=== PATIENT | female | born 1975 | race Caucasian/White ===

== ENCOUNTER 2017-04-09 13:01 | Outpatient (CLI) | payer OTHER ==
[~2017-04-09 13:01] MED LIST: CYCL-1 PO; HYDR-3965 PO; METH-360 PO
[2017-04-09 13:03] VITALS: BP 162/105
== END 2017-04-09 13:50 | disposition home or self-care (01) ==
LOC: ORTHO 13:01
PROVIDERS: ATTEND Nurse Practitioner Family
DX: S52.515A Nondisplaced fracture of left radial styloid process, initial encounter for closed fracture (principal); S80.01XA Contusion of right knee, initial encounter; I10 Essential (primary) hypertension; X58.XXXA Exposure to other specified factors, initial encounter; Y93.89 Activity, other specified; Y92.89 Other specified places as the place of occurrence of the external cause; Y99.8 Other external cause status
CPT/HCPCS: 29075; A4590

== ENCOUNTER 2017-04-30 14:17 | Outpatient (CLI) | payer OTHER ==
[2017-04-30 14:19] VITALS: BP 150/93
== END 2017-04-30 15:00 | disposition home or self-care (01) ==
LOC: ORTHO 14:17
PROVIDERS: ATTEND Nurse Practitioner Family
DX: S52.515D Nondisplaced fracture of left radial styloid process, subsequent encounter for closed fracture with routine healing (principal); I10 Essential (primary) hypertension; X58.XXXD Exposure to other specified factors, subsequent encounter
CPT/HCPCS: 29075; 73110; A4590

== ENCOUNTER 2017-05-21 14:08 | Outpatient (CLI) | payer OTHER ==
[~2017-05-21 14:08] MED LIST changes: -HYDR-3965 PO
[2017-05-21 14:21] VITALS: BP 143/79
== END 2017-05-21 15:03 | disposition home or self-care (01) ==
LOC: ORTHO 14:08
PROVIDERS: ATTEND Nurse Practitioner Family
DX: S52.515D Nondisplaced fracture of left radial styloid process, subsequent encounter for closed fracture with routine healing (principal); S80.01XD Contusion of right knee, subsequent encounter; I10 Essential (primary) hypertension; X58.XXXD Exposure to other specified factors, subsequent encounter
CPT/HCPCS: 29260; 73110

== ENCOUNTER 2017-06-18 15:10 | Outpatient (CLI) | payer OTHER | END 2017-06-18 15:35 | disposition home or self-care (01) | LOC: ORTHO 15:10 | PROVIDERS: ATTEND Nurse Practitioner Family | DX: S52.515D Nondisplaced fracture of left radial styloid process, subsequent encounter for closed fracture with routine healing (principal); I10 Essential (primary) hypertension; X58.XXXD Exposure to other specified factors, subsequent encounter | CPT/HCPCS: 99213 ==

== ENCOUNTER 2019-04-08 12:19 | Emergency (ER) | payer MEDICAID, OTHER ==
[~2019-04-08] VITALS: Ht 154.9 cm; Wt 113.6 kg
[2019-04-08 14:11] LABS: BASOPHILS % (AUTO) 0.6 % (0-1); EOSINOPHILS # (AUTO) 0.1 X10'3 (0-0.9); EOSINOPHILS % (AUTO) 1.6 % (0-6); HEMATOCRIT 36.9 % (35.0-45.0); HEMOGLOBIN 12.6 g/dl (12.0-16.0); LYMPHOCYTES # (AUTO) 2.3 X10'3 (1.1-4.8); LYMPHOCYTES % (AUTO) 29.3 % (21-51); MEAN CORPUSCULAR HEMOGLOBIN 31.6 PG (27.0-31.0); MEAN CORPUSCULAR HGB CONC 34.2 g/dL (33.0-36.5); MEAN CORPUSCULAR VOLUME 92.4 FL (78-98); MEAN PLATELET VOLUME 7.6 FL (7.4-10.4); MONOCYTES # (AUTO) 0.4 X10'3 (0-0.9); MONOCYTES % (AUTO) 5.2 % (2-12); NEUTROPHILS % (AUTO) 63.3 % (42-75); PLATELET COUNT 280 X10'3 (140-440); RED CELL DISTRIBUTION WIDTH 14.5 % (11.5-14.5); WHITE BLOOD COUNT 7.8 X10'3 (4.5-11.0)
[2019-04-08 14:20] LABS: D-DIMER 3.08 MG/L FEU (0-0.50)
[2019-04-08 14:26] LABS: ALANINE AMINOTRANSFERASE 66 U/L (12-78); ALBUMIN/GLOBULIN RATIO 0.8 (1.1-1.5); ALKALINE PHOSPHATASE 103 IU/L (46-116); ANION GAP 7 (8-16); ASPARTATE AMINO TRANSFERASE 43 U/L (10-37); BILIRUBIN,TOTAL 0.2 MG/DL (0.1-1.0); BLOOD UREA NITROGEN 16 MG/DL (7-18); BUN/CREATININE RATIO 25.8 (6.6-38.0); CALCIUM 8.9 MG/DL (8.5-10.1); CHLORIDE 107 MMOL/L (99-107); CREATININE 0.62 MG/DL (0.40-0.90); GLUCOSE 96 MG/DL (70-104); POTASSIUM 4.1 MMOL/L (3.5-5.1); SODIUM 140 MMOL/L (135-145); TOTAL CARBON DIOXIDE 26.4 MMOL/L (24-32); TOTAL PROTEIN 6.8 G/DL (6.4-8.2); eGFR > 90 ML/MIN
[2019-04-08] MEDS ORDERED: iohexol 350MG/ML 100ml bottle IV ONE (15:17)
[2019-04-08 17:01] VITALS: BP 164/93
== END 2019-04-08 17:08 | disposition home or self-care (01) ==
LOC: ER 12:19
DX: R06.02 Shortness of breath (principal); M54.6 Pain in thoracic spine; R42 Dizziness and giddiness; I10 Essential (primary) hypertension; Z79.899 Other long term (current) drug therapy
CPT/HCPCS: 36415; 71045; 71275; 80053; 83880; 84484; 85025; 85379; 93005; 99284; Q9967

== ENCOUNTER 2020-01-02 19:34 | Emergency (ER) | payer MEDICAID ==
[~2020-01-02] VITALS: Ht 154.9 cm; Wt 113.5 kg
[2020-01-02 19:48] VITALS: BP 192/112
[2020-01-02] MEDS ORDERED: DICY10CA88 PO (21:06)
== END 2020-01-02 21:17 | disposition home or self-care (01) ==
LOC: ER 19:35
DX: R19.7 Diarrhea, unspecified (principal); R10.9 Unspecified abdominal pain; I10 Essential (primary) hypertension; Z72.89 Other problems related to lifestyle; Z79.899 Other long term (current) drug therapy
CPT/HCPCS: 99283

== ENCOUNTER 2021-08-15 02:56 | Observation (INO) | payer MEDICAID, OTHER ==
[~2021-08-15] VITALS: Ht 154.9 cm; Wt 118.8 kg
[~2021-08-15 02:56] MED LIST changes: +DICY10CA88 PO
[2021-08-15 03:42] LABS: CLARITY,URINE SLIGHTLY CLOUDY (Clear); GLUCOSE, URINE 100 mg/dl (Neg); KETONES,URINE NEGATIVE (Neg); LEUKOCYTE ESTERASE ,URINE NEGATIVE (Neg); OCCULT BLOOD,URINE NEGATIVE (Neg); PH,URINE 7.5 (4.8-8.0); PROTEIN,URINE TRACE mg/dl (Neg)
[2021-08-15 03:46] LABS: BASOPHILS % (AUTO) 0.6 % (0-1); EOSINOPHILS # (AUTO) 0.2 X10'3 (0-0.9); EOSINOPHILS % (AUTO) 2.2 % (0-6); HEMATOCRIT 33.7 % (35.0-45.0); HEMOGLOBIN 11.4 g/dl (12.0-16.0); LYMPHOCYTES # (AUTO) 2.5 X10'3 (1.1-4.8); MEAN CORPUSCULAR HEMOGLOBIN 28.2 PG (27.0-31.0); MEAN CORPUSCULAR HGB CONC 33.8 g/dL (33.0-36.5); MEAN CORPUSCULAR VOLUME 83.5 FL (78-98); MEAN PLATELET VOLUME 7.7 FL (7.4-10.4); MONOCYTES # (AUTO) 0.6 X10'3 (0-0.9); MONOCYTES % (AUTO) 7.5 % (2-12); NEUTROPHILS # (AUTO) 4.4 X10'3 (1.8-7.7); NEUTROPHILS % (AUTO) 56.7 % (42-75); PLATELET COUNT 318 X10'3 (140-440); RED BLOOD COUNT 4.04 X10'6 (4.20-5.60); RED CELL DISTRIBUTION WIDTH 15.4 % (11.5-14.5); WHITE BLOOD COUNT 7.7 X10'3 (4.5-11.0)
[2021-08-15 03:49] LABS: URINE HCG NEGATIVE (NEG)
[2021-08-15 03:57] LABS: ALANINE AMINOTRANSFERASE 39 U/L (12-78); ALBUMIN 3.2 G/DL (3.4-5.0); ALBUMIN/GLOBULIN RATIO 0.8 (1.1-1.5); ALKALINE PHOSPHATASE 102 IU/L (46-116); ANION GAP 10 (8-16); ASPARTATE AMINO TRANSFERASE 22 U/L (10-37); BILIRUBIN,TOTAL 0.3 MG/DL (0.1-1.0); BLOOD UREA NITROGEN 19 MG/DL (7-18); BUN/CREATININE RATIO 33.3 (6.6-38.0); CALCIUM 8.8 MG/DL (8.5-10.1); CHLORIDE 105 MMOL/L (99-107); CREATININE 0.57 MG/DL (0.40-0.90); GLUCOSE 103 MG/DL (70-104); LIPASE 102 U/L (73-393); POTASSIUM 4.3 MMOL/L (3.5-5.1); SODIUM 138 MMOL/L (135-145); TOTAL CARBON DIOXIDE 23.5 MMOL/L (24-32); TOTAL PROTEIN 7.4 G/DL (6.4-8.2); eGFR > 90 ML/MIN
[2021-08-15 04:02] LABS: UA COLLECTION TYPE CLN CATCH MIDSTREAM
[2021-08-15 04:04] LABS: NITRITES, URINE NEGATIVE (Neg)
[2021-08-15 04:05] LABS: COLOR,URINE DARK YELLOW (Yellow); WBC,URINE 0-4 /HPF (0-4)
[2021-08-15 04:06] LABS: BACTERIA,URINE 1+ /HPF (Neg); MUCUS STRANDS FEW /LPF (Neg); RBC,URINE 0-2 /HPF (0-2); SQUAMOUS EPITHELIAL CELL,UR FEW /LPF (FEW)
[2021-08-15] MEDS ORDERED: ondansetron/PF 4mg/2ml inj IV ONE (05:30)
[2021-08-15] MEDS ORDERED: morphine 2 MG/ML inj. syringe IV ONE (06:15)
[2021-08-15] MEDS ORDERED: LORazepam 2 mg/ml vial IV ONE (06:30)
[2021-08-15] MEDS ORDERED: morphine 2 MG/ML inj. syringe IV PRN (06:30)
[2021-08-15] MEDS ORDERED: magnesium hydroxide 30ml (MOM) UD suspension PO PRN (07:35)
[2021-08-15] MEDS ORDERED: acetaminophen 325mg tablet PO PRN (07:35)
[2021-08-15] MEDS ORDERED: mag hydrox/Alum hydrox/simeth 30ml oral suspension PO PRN (07:35)
[2021-08-15] MEDS ORDERED: HYDROmorphone/PF 0.2 MG/ML SYRINGE IV PRN (07:35)
[2021-08-15] MEDS: docusate sod 100mg capsule PO SCH ×2 (08:00→20:00)
[2021-08-15] MEDS: normal saline 1000ml 1,000 ML IV SCH ×3 (10:17→20:56)
[2021-08-15] MEDS ORDERED: NO HOME MEDS (11:12)
[2021-08-15] MEDS ORDERED: dextrose 50%-water 50ml dispensing syringe IV PRN (11:50)
[2021-08-15] MEDS: thiamine 100mg/ml 2ml inj. IV SCH ×2 (13:38→20:49)
[2021-08-15] MEDS: ondansetron/PF 4mg/2ml inj IV PRN (15:56)
[2021-08-15] MEDS: LORazepam 2 mg/ml vial IV PRN (17:44)
[2021-08-15 19:00] VITALS: BP 138/72
[2021-08-15 22:00] VITALS: BP 144/72
[2021-08-16] VITALS (16 sets, daily range): BP systolic 112–143; BP diastolic 58–85
[2021-08-16 06:42] LABS: BASOPHILS % (AUTO) 0.5 % (0-1); EOSINOPHILS # (AUTO) 0.2 X10'3 (0-0.9); EOSINOPHILS % (AUTO) 2.9 % (0-6); HEMATOCRIT 34.6 % (35.0-45.0); HEMOGLOBIN 11.1 g/dl (12.0-16.0); LYMPHOCYTES % (AUTO) 34.9 % (21-51); MEAN CORPUSCULAR HEMOGLOBIN 27.3 PG (27.0-31.0); MEAN CORPUSCULAR HGB CONC 32.1 g/dL (33.0-36.5); MEAN CORPUSCULAR VOLUME 84.8 FL (78-98); MEAN PLATELET VOLUME 7.6 FL (7.4-10.4); MONOCYTES # (AUTO) 0.6 X10'3 (0-0.9); NEUTROPHILS % (AUTO) 51.7 % (42-75); PLATELET COUNT 271 X10'3 (140-440); RED BLOOD COUNT 4.08 X10'6 (4.20-5.60); RED CELL DISTRIBUTION WIDTH 15.4 % (11.5-14.5); WHITE BLOOD COUNT 5.7 X10'3 (4.5-11.0)
--- NOTE | 2021-08-16 06:51 | NUR ---
Patient in room ORTHO 4022. I have received report from JANAY Broderick and had the opportunity to ask questions and assume patient care.
[2021-08-16 07:00] LABS: ALBUMIN 2.8 G/DL (3.4-5.0); ANION GAP 8 (8-16); BLOOD UREA NITROGEN 12 MG/DL (7-18); BUN/CREATININE RATIO 24.5 (6.6-38.0); CALCIUM 8.5 MG/DL (8.5-10.1); CHLORIDE 110 MMOL/L (99-107); CREATININE 0.49 MG/DL (0.40-0.90); GLUCOSE 98 MG/DL (70-104); POTASSIUM 4.4 MMOL/L (3.5-5.1); SODIUM 142 MMOL/L (135-145); TOTAL CARBON DIOXIDE 23.6 MMOL/L (24-32); eGFR > 90 ML/MIN
[2021-08-16] MEDS: docusate sod 100mg capsule PO SCH ×2 (08:00→20:46)
[2021-08-16] MEDS: thiamine 100mg/ml 2ml inj. IV SCH ×3 (08:50→20:46)
[2021-08-16] MEDS: folic acid 1mg/0.2ml inj IV SCH (10:43)
[2021-08-16] MEDS ORDERED: morphine 2 MG/ML inj. syringe IV PRN (13:05)
[2021-08-16] MEDS ORDERED: ondansetron/PF 4mg/2ml inj IV PRN (13:05)
[2021-08-16] MEDS ORDERED: morphine 4 MG/ML inj SYRINge IV PRN (13:05)
[2021-08-16] MEDS ORDERED: meperidine/PF 25mg/ml syringe IV PRN ×3 (13:05)
[2021-08-16] MEDS ORDERED: ringers solution, lacted 1,000 ML IV SCH (13:05)
[2021-08-16] MEDS ORDERED: proCHLORperazine 10 MG/2 ml inj IV PRN (13:05)
[2021-08-16] MEDS ORDERED: INDOCYANINE GREEN 25 MG/10 ML VIAL IV ONE (16:25)
[2021-08-16] MEDS ORDERED: BUPIVAcaine 0.5% inj/PF 30 ML ONE (17:16)
[2021-08-16] MEDS ORDERED: LIDOcaine 1% 30ml preserv. free vial ONE (17:16)
[2021-08-16] MEDS ORDERED: ceFAZolin 1000mg inj ONE ×3 (18:03→18:45)
[2021-08-16] MEDS ORDERED: dexamethasone sod phosphate 4mg/ml inj. ONE (18:03)
[2021-08-16] MEDS ORDERED: glycopyrrolate 0.2mg/ml inj ONE (18:03)
[2021-08-16] MEDS ORDERED: neostigmine methylsulfate 1 MG/ML 10ml vial ONE (18:03)
[2021-08-16] MEDS ORDERED: sevoflurane 250ml liquid IH ONE (18:03)
[2021-08-16] MEDS ORDERED: midazolam 1 mg/ML 2ml injection ONE (18:05)
[2021-08-16] MEDS ORDERED: fentaNYL/PF 50MCG/1 ML 2ML syringe ONE (18:05)
[2021-08-16] MEDS ORDERED: meperidine/PF 25mg/ml syringe ONE (18:05)
[2021-08-16] MEDS ORDERED: LIDOcaine 1%/PF 5ML 10 MG/ML VIAL ONE (18:15)
[2021-08-16] MEDS ORDERED: ondansetron/PF 4mg/2ml inj ONE (18:15)
[2021-08-16] MEDS ORDERED: propofol inj 20 ML IV ONE (18:15)
[2021-08-16] MEDS ORDERED: rocuronium 10mg/ml inj IV ONE (18:15)
[2021-08-16] MEDS ORDERED: BUPIVAcaine 0.5% inj/PF 30 ml vial IJ ONE (18:40)
--- NOTE | 2021-08-16 18:52 | NUR ---
Problems reprioritized. Patient report given, questions answered & plan of care reviewed with JANAY Riley.
--- NOTE | 2021-08-16 19:28 | NUR ---
Received from OR via , accompanied by Anesthesiologist DR PURCELL and report given by Anesthesiolgist. AWAKENS TO VOICE. VITALS STABLE. DRESSINGS DI. C/O SEVERE ABD PAIN. WILL MEDICATE. ABD SOFT.
[2021-08-16] MEDS ORDERED: ketorolac trometh. 30mg/ml inj. IV ONE (19:35)
[2021-08-16] MEDS ORDERED: acetaminophen 1,000mg/100ml IV 100 ML IV ONE (19:55)
--- NOTE | 2021-08-16 20:28 | NUR ---
Report called to receiving nurse. Transferred via BED Belongings . Special Issues communicated to receiving nurse.AWAKE AND ORIENTED. VITALS STABLE. DRESSINGS DI. STATES PAIN IMPROVING. TO ORTHO RM 4021T AT THIS TIME.
[2021-08-16] MEDS: ondansetron/PF 4mg/2ml inj IV PRN (20:46)
[2021-08-16] MEDS: normal saline 1000ml 1,000 ML IV SCH ×2 (23:35→23:54)
[2021-08-17 00:15] VITALS: BP 148/71
[2021-08-17] MEDS: LORazepam 2 mg/ml vial IV PRN (00:56)
[2021-08-17 02:00] VITALS: BP 125/66
[2021-08-17 06:00] VITALS: BP 134/64
--- NOTE | 2021-08-17 06:10 | NUR ---
Problems reprioritized. Patient report given, questions answered & plan of care reviewed with Erin GUSTAFSON and SN.
--- NOTE | 2021-08-17 06:46 | NUR ---
Patient in room ORTHO 4022. I have received report from THOMAS GUSTAFSON and had the opportunity to ask questions and assume patient care.
[2021-08-17 06:51] LABS: BASOPHILS % (AUTO) 0.1 % (0-1); EOSINOPHILS % (AUTO) 0 % (0-6); HEMOGLOBIN 10.2 g/dl (12.0-16.0); LYMPHOCYTES # (AUTO) 0.8 X10'3 (1.1-4.8); LYMPHOCYTES % (AUTO) 9.2 % (21-51); MEAN CORPUSCULAR HEMOGLOBIN 28.1 PG (27.0-31.0); MEAN PLATELET VOLUME 7.5 FL (7.4-10.4); MONOCYTES # (AUTO) 0.4 X10'3 (0-0.9); MONOCYTES % (AUTO) 4.7 % (2-12); NEUTROPHILS # (AUTO) 7.1 X10'3 (1.8-7.7); PLATELET COUNT 277 X10'3 (140-440); RED BLOOD COUNT 3.64 X10'6 (4.20-5.60); RED CELL DISTRIBUTION WIDTH 15.8 % (11.5-14.5); WHITE BLOOD COUNT 8.2 X10'3 (4.5-11.0)
--- NOTE | 2021-08-17 06:59 | NUR ---
Patient in room ORTHO 4022. I have received report from Erlinda and had the opportunity to ask questions and assume patient care.
[2021-08-17 07:10] LABS: ALBUMIN 2.7 G/DL (3.4-5.0); ANION GAP 8 (8-16); BLOOD UREA NITROGEN 6 MG/DL (7-18); BUN/CREATININE RATIO 12.5 (6.6-38.0); CALCIUM 8.2 MG/DL (8.5-10.1); CHLORIDE 108 MMOL/L (99-107); CREATININE 0.48 MG/DL (0.40-0.90); GLUCOSE 127 MG/DL (70-104); POTASSIUM 4.3 MMOL/L (3.5-5.1); SODIUM 139 MMOL/L (135-145); eGFR > 90 ML/MIN
[2021-08-17] MEDS: thiamine 100mg/ml 2ml inj. IV SCH (09:21)
[2021-08-17] MEDS: docusate sod 100mg capsule PO SCH (09:21)
[2021-08-17] MEDS: folic acid 1mg/0.2ml inj IV SCH (09:22)
[2021-08-17] MEDS: normal saline 1000ml 1,000 ML IV SCH (09:47)
[2021-08-17 10:00] VITALS: BP 154/84
[2021-08-17] MEDS ORDERED: HYDR-3965 PO (11:39)
[2021-08-17] MEDS ORDERED: LORazepam 1 MG tablet PO PRN (11:50)
[2021-08-17] MEDS ORDERED: LORazepam 2 mg/ml vial IV PRN (11:50)
--- NOTE | 2021-08-17 15:48 | NUR ---
Patient discharged home. Education completed with patient with verbal acknowledgement of understanding. Patient sent with IS on discharge and encouraged to continue use. Patient advised to call unit if any questions after discharge. IV discontinued.
[2021-08-19] MEDS ORDERED: LORazepam 1 MG tablet PO PRN (11:50)
[2021-08-19] MEDS ORDERED: LORazepam 2 mg/ml vial IV PRN (11:50)
[2021-08-20] MEDS ORDERED: folic acid 1mg tablet PO SCH (08:00)
[2021-08-20] MEDS ORDERED: thiamine 100mg tablet PO SCH (08:00)
== END 2021-08-17 13:30 | disposition home or self-care (01) ==
LOC: ER 02:57 → ED HOLD 07:37 → ORTHO 4S 19:06
PROVIDERS: ADMIT Family Medicine; ATTEND Family Medicine
DX: K80.20 Calculus of gallbladder without cholecystitis without obstruction (principal); Z20.822 Contact with and (suspected) exposure to COVID-19; I10 Essential (primary) hypertension; F10.20 Alcohol dependence, uncomplicated; K21.9 Gastro-esophageal reflux disease without esophagitis; E66.01 Morbid (severe) obesity due to excess calories; Z79.899 Other long term (current) drug therapy
CPT/HCPCS: 36415; 47563; 74300; 76700; 80048; 80053; 81001; 81025; 82948; 83690; 85025; 87081; 87635; 96374; 96375; 96376; 99285; G0378; J0131; J0690; J1100; J1170; J1885; J2060; J2175; J2250; J2270; J2405; J2704; J2710; J3010; J3411; J3490; J7030; J7120; S0020; S2900; A4215; A4618; A7000

== ENCOUNTER 2021-08-29 19:17 | Emergency (ER) | payer MEDICAID, OTHER ==
[~2021-08-29] VITALS: Ht 157.5 cm; Wt 113.6 kg
[~2021-08-29 19:17] MED LIST changes: -CYCL-1 PO; -DICY10CA88 PO; +HYDR-3965 PO; -METH-360 PO
[2021-08-29 19:18] VITALS: BP 196/96
[2021-08-29] MEDS ORDERED: LIDOcaine 2% 10ml TOPICAL JELLY (Urojet) MM ONE (20:40)
[2021-08-29] MEDS ORDERED: CEPH250T PO (22:26)
== END 2021-08-29 22:33 | disposition home or self-care (01) ==
LOC: ER 19:17
DX: Z48.02 Encounter for removal of sutures (principal); T81.89XD Other complications of procedures, not elsewhere classified, subsequent encounter; I10 Essential (primary) hypertension; Z90.49 Acquired absence of other specified parts of digestive tract; Z72.89 Other problems related to lifestyle; Z79.2 Long term (current) use of antibiotics; Y83.9 Surgical procedure, unspecified as the cause of abnormal reaction of the patient, or of later complication, without mention of misadventure at the time of the procedure
CPT/HCPCS: 99283

== ENCOUNTER 2022-03-23 10:58 | Emergency (ER) | payer MEDICAID, OTHER ==
[~2022-03-23] VITALS: Ht 154.9 cm; Wt 113.6 kg
[2022-03-23 12:09] VITALS: BP 182/107
== END 2022-03-23 16:13 | disposition home or self-care (01) ==
LOC: ER 10:58
DX: M25.512 Pain in left shoulder (principal); I10 Essential (primary) hypertension; Z87.81 Personal history of (healed) traumatic fracture; Z79.899 Other long term (current) drug therapy
CPT/HCPCS: 73030; 99284; A4565

== ENCOUNTER 2023-08-08 09:22 | Emergency (ER) | payer MEDICAID ==
[~2023-08-08] VITALS: Ht 154.9 cm; Wt 118.0 kg
[2023-08-08] MEDS ORDERED: ALBU8HFA INH (10:52)
[2023-08-08] MEDS ORDERED: BENZ-38 PO (10:52)
[2023-08-08 11:03] VITALS: BP 176/97; PULSE 77; TEMP 97.9; O2SAT 99
[2023-08-08 11:04] VITALS: RESP 17
== END 2023-08-08 11:05 | disposition home or self-care (01) ==
LOC: ER 09:22
DX: J20.9 Acute bronchitis, unspecified (principal); F17.200 Nicotine dependence, unspecified, uncomplicated; I10 Essential (primary) hypertension; Z87.81 Personal history of (healed) traumatic fracture; Z90.49 Acquired absence of other specified parts of digestive tract; Z72.89 Other problems related to lifestyle
CPT/HCPCS: 99283

== ENCOUNTER 2023-10-29 18:11 | Emergency (ER) | payer MEDICAID ==
[~2023-10-29] VITALS: Ht 154.9 cm; Wt 120.0 kg
[2023-10-29 19:32] LABS: BASOPHILS % (AUTO) 0.2 % (0-1); EOSINOPHILS % (AUTO) 0.6 % (0-6); HEMATOCRIT 32.8 % (35.0-45.0); HEMOGLOBIN 10.6 g/dl (12.0-16.0); LYMPHOCYTES # (AUTO) 0.3 X10'3 (1.1-4.8); MEAN CORPUSCULAR HEMOGLOBIN 25.6 PG (27.0-31.0); MEAN CORPUSCULAR HGB CONC 32.3 g/dL (33.0-36.5); MEAN CORPUSCULAR VOLUME 79.2 FL (78-98); MEAN PLATELET VOLUME 7.1 FL (7.4-10.4); MONOCYTES # (AUTO) 0.4 X10'3 (0-0.9); MONOCYTES % (AUTO) 6.2 % (2-12); NEUTROPHILS # (AUTO) 5.7 X10'3 (1.8-7.7); PLATELET COUNT 294 X10'3 (140-440); RED BLOOD COUNT 4.15 X10'6 (4.20-5.60); RED CELL DISTRIBUTION WIDTH 17.9 % (11.5-14.5); WHITE BLOOD COUNT 6.5 X10'3 (4.5-11.0)
[2023-10-29 19:35] LABS: URINE HCG NEGATIVE (NEG)
[2023-10-29 19:40] LABS: CLARITY,URINE Clear (Clear); COLOR,URINE ORANGE (Yellow); UA COLLECTION TYPE CLN CATCH MIDSTREAM
[2023-10-29 19:42] LABS: BACTERIA,URINE FEW /HPF (Neg); MUCUS STRANDS NONE SEEN /LPF (Neg); SQUAMOUS EPITHELIAL CELL,UR MODERATE /LPF (FEW); WBC,URINE 0-4 /HPF (0-4)
[2023-10-29 19:44] LABS: RBC,URINE 20-50 /HPF (0-2)
[2023-10-29 19:46] LABS: ALANINE AMINOTRANSFERASE 54 U/L (12-78); ALBUMIN 3.2 G/DL (3.4-5.0); ALBUMIN/GLOBULIN RATIO 0.7 (1.1-1.5); ALKALINE PHOSPHATASE 95 IU/L (46-116); ANION GAP 11 (8-16); ASPARTATE AMINO TRANSFERASE 46 U/L (10-37); BILIRUBIN,TOTAL 0.3 MG/DL (0.1-1.0); BLOOD UREA NITROGEN 13 MG/DL (7-18); BUN/CREATININE RATIO 19.4 (10.0-20.0); CALCIUM 8.9 MG/DL (8.5-10.1); CHLORIDE 103 MMOL/L (99-107); CREATININE 0.67 MG/DL (0.40-0.90); GLUCOSE 101 MG/DL (70-104); POTASSIUM 3.7 MMOL/L (3.5-5.1); SODIUM 137 MMOL/L (135-145); TOTAL CARBON DIOXIDE 23.2 MMOL/L (24-32); TOTAL PROTEIN 7.6 G/DL (6.4-8.2); eCRCL 79 ML/MIN; eGFR > 90 ML/MIN
[2023-10-29] MEDS: acetaminophen 325mg tablet PO STA (20:45)
[2023-10-29 21:21] LABS: MAGNESIUM 1.9 MG/DL (1.5-2.4)
[2023-10-29] MEDS: normal saline 1000ML IV soln IVB ONE (21:24)
[2023-10-29] MEDS: CefTRIAXone/D5W-Rocephin 1gm 50 ML IV ONE (21:24)
[2023-10-29] MEDS: ondansetron/PF 4mg/2ml inj IV ONE (21:26)
[2023-10-29] MEDS: ketorolac tromethamine 15mg/ml inj. IV ONE (22:17)
[2023-10-29] MEDS ORDERED: iohexol 300mg/ml 100ml inj. ONE (23:03)
[2023-10-30] MEDS ORDERED: IBUP-1985 PO (00:41)
[2023-10-30] MEDS ORDERED: METR-159 PO (00:41)
[2023-10-30] MEDS ORDERED: DOXY-1 PO (00:41)
[2023-10-30] MEDS: ketorolac tromethamine 15mg/ml inj. IV ONE (01:26)
[2023-10-30] MEDS: metroNIDAZOLE 500mg tablet PO ONE (01:27)
[2023-10-30] MEDS: ondansetron/PF 4mg/2ml inj IV ONE (01:27)
[2023-10-30] MEDS: DOXYCYCLINE 100MG CAPSULE PO STA (01:27)
[2023-10-30] MEDS: morphine 4 MG/ML inj SYRINge IV ONE (01:28)
[2023-10-30 01:41] VITALS: BP 123/69; PULSE 92; RESP 16; TEMP 98.3; O2SAT 97
[2023-11-02 18:45] LABS: CHLAMYDIA TRACHOMATIS, NAA Negative (Negative)
== END 2023-10-30 01:42 | disposition home or self-care (01) ==
LOC: ER 18:12
DX: R10.2 Pelvic and perineal pain (principal); Q51.9 Congenital malformation of uterus and cervix, unspecified; I10 Essential (primary) hypertension; Z79.2 Long term (current) use of antibiotics; Z79.1 Long term (current) use of non-steroidal anti-inflammatories (NSAID); Z79.899 Other long term (current) drug therapy; Z90.49 Acquired absence of other specified parts of digestive tract
CPT/HCPCS: 36415; 71045; 74177; 80053; 81001; 81025; 83605; 83735; 84145; 84484; 85025; 87040; 87491; 87591; 93005; 96365; 96375; 96376; 99285; J0696; J1885; J2270; J2405; J7030; Q0112; Q9967

== ENCOUNTER 2024-10-02 16:48 | Emergency (ER) | payer MEDICAID ==
[~2024-10-02] VITALS: Ht 152.4 cm; Wt 109.1 kg
[~2024-10-02 16:48] MED LIST changes: -HYDR-3965 PO; +IBUP-1985 PO
[2024-10-02] MEDS: HYDROmorphone 1 mg/ml syringe IV ONE (17:28)
[2024-10-02] MEDS: normal saline 1000ml 1,000 ML IV ONE (17:33)
[2024-10-02] MEDS: normal saline 1000ML IV soln IVB ONE (17:33)
[2024-10-02 18:05] LABS: BASOPHILS % (AUTO) 0.5 % (0-1); EOSINOPHILS # (AUTO) 0.1 X10'3 (0-0.9); HEMATOCRIT 33.5 % (35.0-45.0); HEMOGLOBIN 10.8 g/dl (12.0-16.0); LYMPHOCYTES # (AUTO) 1.6 X10'3 (1.1-4.8); LYMPHOCYTES % (AUTO) 18.4 % (21-51); MEAN CORPUSCULAR HEMOGLOBIN 27.5 PG (27.0-31.0); MEAN CORPUSCULAR HGB CONC 32.3 g/dL (33.0-36.5); MEAN CORPUSCULAR VOLUME 85.1 FL (78-98); MEAN PLATELET VOLUME 7.4 FL (7.4-10.4); MONOCYTES # (AUTO) 0.4 X10'3 (0-0.9); MONOCYTES % (AUTO) 4.8 % (2-12); NEUTROPHILS # (AUTO) 6.4 X10'3 (1.8-7.7); NEUTROPHILS % (AUTO) 75.3 % (42-75); PLATELET COUNT 327 X10'3 (140-440); RED BLOOD COUNT 3.93 X10'6 (4.20-5.60); RED CELL DISTRIBUTION WIDTH 17.1 % (11.5-14.5); WHITE BLOOD COUNT 8.6 X10'3 (4.5-11.0)
[2024-10-02] MEDS ORDERED: HYDROmorphone 1 mg/ml syringe IV ONE (18:05)
[2024-10-02 18:18] LABS: ALBUMIN 2.9 G/DL (3.4-5.0); ANION GAP 11 (8-16); BLOOD UREA NITROGEN 14 MG/DL (7-18); BUN/CREATININE RATIO 21.5 (10.0-20.0); CALCIUM 8.6 MG/DL (8.5-10.1); CHLORIDE 112 MMOL/L (99-107); CREATININE 0.65 MG/DL (0.40-0.90); ETHANOL 160 MG/DL (<10); GLUCOSE 115 MG/DL (70-104); LIPASE 30 U/L (16-77); MAGNESIUM 1.8 MG/DL (1.5-2.4); POTASSIUM 3.9 MMOL/L (3.5-5.1); SODIUM 145 MMOL/L (135-145); eCRCL 77 ML/MIN; eGFR > 90 ML/MIN
--- NOTE | 2024-10-02 18:24 | RADIOLOGY REPORT ---
EXAM: DI ANKLE,LIMITED (AP/LAT) CLINICAL HISTORY: ANKLE PAIN COMPARISON: None TECHNIQUE: DI ANKLE,LIMITED (AP/LAT) Findings/Impression: 2 views of the left ankle. Mildly displaced fracture of the distal fibular diaphysis. Possible avulsion fracture of the medial m alleolus. Dislocation of the tibiotalar joint with anteromedial displacement of the tibia in relation to the ta jarrod. Moderate soft tissue edema. There is no evidence of blastic or lytic lesions. No radiopaque foreign bodies.
--- NOTE | 2024-10-02 18:25 | ELECTROCARDIOGRAPH REPORT ---
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 Jose Ornelas Measurements Intervals [place] Rate: 93 P: 25 IN: 139 QRS: 65 QRSD: 88 T: 20 QT: 338 QTc: 421 Interpretive Statements Sinus rhythm Baseline wander in lead(s) V3 Electronically Signed On 10-02-2024 19:37:[address] Jose Ornelas Please click the below link to view image of tracing.
--- NOTE | 2024-10-02 19:05 | Physician Documentation ---
History of Present Illness ~ Chief Complaint: Mechanical Fall Stated Complaint: FALL Time Seen by MD: 18:29 Primary Medical Doctor: NO PMD Mode of Arrival: EMS HPI Additional note by Kody Lopez DO: I took over the care of this patient from previous physician. I reviewed any previous notes available, obtain my own history, review of systems and physical examination was performed by myself. This is a 48-year-old female who has a very reluctant an unreliable historian presents for evaluation of potential injuries sustained in the fall at the [facility]. She has been at the [facility] since noon and had at least five shots. She then had fallen and injured her ankle with an obvious deformity, immediate onset pain, no particular palliating factors, unable to bear weight, aggravated by any attempt to move it. Splinted by the EMS. EMS gave 50 of fentanyl with only minimal relief. Dilaudid provided by Dr. Costa also did not provide her with a sufficient pain relief. Denies any other injury. Tetanus within 5 Years?: No Medication Reconciliation Allergies: Coded Allergies: morphine (Unverified Allergy, Mild, VOMITING, 10/02/24) Scheduled Ibuprofen (Ibuprofen), 1 TAB PO Q8H Past Medical History Past Medical History: Hypertension, Extremity Fracture Past Surgical History: cholecystectomy Alcohol Use: Occasionally Drug Use: none Lives with: Family Lives In: Home Occupation: employed Review of Systems ROS 10 point review of systems was performed and unless noted above in HPI is negative for acute process/complaint. Physical Exam Vital Signs: Temperature: 98.0, Source: Temporal, Heart Rate: 103, Respiratory Rate: 25, BP: 145/116, Pulse Oximetry: 100, Weight: 109.090 Oxygen Flow Rate: 2.0 Physical Exam GENERAL: Awake, alert, oriented, GCS 15, no apparent distress, non-toxic appearing, answers questions, follows commands appropriately. HEENT: Atraumatic, normocephalic, pupils equal, extraocular muscles intact, sclerae anicteric, mucus membranes moist, oropharynx is clear, no stridor. NECK: supple, full active range of motion, trachea midline, no thyromegaly, no lymphadenopathy, no JVD. CARDIOVASCULAR: regular rate/rhythm, no murmurs/gallops/rubs, Pulses are 2+ in all extremities and symmetric. Capillary refill less than 2 seconds. PULMONARY: Nonlabored, good air movement ,no respiratory distress, speaking in full sentences, clear to auscultation bilaterally, no wheezing, no ronchi, no rales, no accessory muscle use. GASTROINTESTINAL: Soft, non-tender, non-distended, normal active bowel sounds, no organomegaly, no pulsatile masses, no CVA tenderness. NEUROLOGIC: Lucid with normal mental status. Normal facial symmetry. Moves all extremities symmetrically and with purpose. No truncal ataxia. Speech is fluid without evidence of dysarthria or aphasia, no focal deficits appreciated. MUSCULOSKELETAL: There is full range of motion of all extremities. There is no joint pain or joint swelling or joint erythema. There is no muscle pain or tenderness or swelling. EXTREMITIES: warm, well-perfused, no cyanosis, no clubbing, no edema, no acute deformities. Skin: warm, dry, no rashes or lesions, no jaundice, no petechiae orpurpura. No ecchymosis. PSYCHIATRIC: Normal affect, normal insight, normal concentration. Focused exam: [] There is an obvious deformity, bruising to the ankle on the left side. Neurovascularly intact. Crepitus noted over medial and lateral malleolus. Procedures Ultrasound Procedure Note Fracture Reduction Authorized by: Kody Lopez DO Performed by:Kody Lopez DO Consent: Verbal consent obtained. Risks and benefits: risks, benefits and alternatives were discussed Consent given by: patient and/or guardian Patient understanding: patient/guardian states understanding of the procedure being performed Patient consent: the patient/guardian's understanding of the procedure matches consent given Patient identity confirmed: verbally with patient and arm band Time out: Immediately prior to procedure a "time out" was called to verify the correct patient, procedure, equipment, support group manager and site/side marked as required. Location details: Left ankle fracture dislocation Reduction Procedure: axial pull and closed manipulation Results: Post reduction alignement improved Complication: Tolerated well without complication. <2sec [employer]. Tendons intact. Procedural (Conscious) Sedation Authorized by:Kody Lopez DO Performed by:Kody Lopez DO Consent: Written consent obtained (see nursing note) Risks and benefits: risks, benefits and alternatives were discussed Consent given by: patient Patient understanding: states understanding of the procedure being performed Patient consent: understanding of the procedure matches consent given Patient identity confirmed: verbally with patient and arm band Time out: Immediately prior to procedure a "time out" was called to verify the correct patient, procedure, equipment, support group manager and site/side marked as required. Medication IV: 1 milligram/kilogram of ketamine was given via slow IV push Complication: Tolerated well with the emergence reaction. No hypoxic episodes. Time: Total intra-service time with patient was 17 minutes. Splint Application and Check Authorized by: Consent: Verbal consent obtained. Risks and benefits: risks, benefits and alternatives were discussed Consent given by: patient Patient understanding: patient states understanding of the procedure being performed Patient consent: the patient's understanding of the procedure matches consent given Patient identity confirmed: verbally with patient and arm band Time out: Immediately prior to procedure a "time out" was called to verify the correct patient, procedure, equipment, support group manager and site/side marked as required. Location details: Sonny splint applied to left lower leg Post-procedure: The splinted body part was neurovascularly unchanged following the procedure. Patient tolerance: Patient tolerated the procedure well with no immediate comp lications. Progress Results/Orders Results/Orders Medications Received in ER Medications (Trade) Dose Ordered Sig/Bladimir Route PRN Reason Start Time Stop Time Status Last Admin Dose Admin (Dilaudid inj.) 1 mg ONCE ONCE IV 10/02/24 17:10 10/02/24 17:11 DC 10/02/24 17:28 1 MG (sodium chloride 1000ml IV soln) 1,000 ml ONCE ONCE IVB 10/02/24 17:25 10/02/24 17:27 DC 10/02/24 17:33 1,000 ML Sodium Chloride 1,000 ml @ 200 mls/hr Q5H ONCE IV 10/02/24 17:25 10/02/24 22:24 10/02/24 17:33 200 MLS/HR (Zofran 4mg/2ml vial) 8 mg ONCE ONCE IV 10/02/24 18:15 10/02/24 18:16 DC 10/02/24 19:16 4 MG Vital Signs 10/02/24 10/02/24 10/02/24 10/02/24 16:57 17:40 17:42 18:29 Temp 98.0 Pulse 115 94 103 Resp 16 18 8 B/P (MAP) 139/63 141/76 (97) 145/116 Pulse Ox 95 98 98 O2 Delivery Nasal Cannula O2 Flow Rate 0 2.0 10/02/24 10/02/24 10/02/24 10/02/24 18:34 18:36 18:39 18:44 Pulse 131 95 122 116 Resp 15 25 16 16 B/P (MAP) 179/94 181/90 180/90 Pulse Ox 94 100 96 95 O2 Delivery Nasal Cannula Nasal Cannula Nasal Cannula Nasal Cannula O2 Flow Rate 2.0 2.0 2.0 2.0 10/02/24 10/02/24 18:49 19:10 Pulse 113 109 Resp 16 16 B/P (MAP) 134/83 141/78 (99) Pulse Ox 96 97 O2 Delivery Nasal Cannula Room Air O2 Flow Rate 2.0 Laboratory Tests Test 10/02/24 17:40 White Blood Count 8.6 Red Blood Count 3.93 L Hemoglobin 10.8 L Hematocrit 33.5 L Mean Corpuscular Volume 85.1 Mean Corpuscular Hemoglobin 27.5 Mean Corpuscular Hemoglobin Concent 32.3 L Red Cell Distribution Width 17.1 H Platelet Count 327 Mean Platelet Volume 7.4 Neutrophils (%) (Auto) 75.3 H Lymphocytes (%) (Auto) 18.4 L Monocytes (%) (Auto) 4.8 Eosinophils (%) (Auto) 1.0 Basophils (%) (Auto) 0.5 Neutrophils # (Auto) 6.4 Lymphocytes # (Auto) 1.6 Monocytes # (Auto) 0.4 Eosinophils # (Auto) 0.1 Basophils # (Auto) 0.0 CBC Comment Sodium Level 145 Potassium Level 3.9 Chloride Level 112 H Carbon Dioxide Level 22.0 L Anion Gap 11 Blood Urea Nitrogen 14 Creatinine 0.65 Estimated GFR/1.73 m2 > 90 BUN/Creatinine Ratio 21.5 H Glucose Level 115 H Calcium Level 8.6 Magnesium Level 1.8 Albumin 2.9 L Lipase 30 Chemistry Comments Ethyl Alcohol Level 160 H EKG/XRAY/CT/US/VASC/MRI EKG : Additional Comment EKG was obtained from prior to procedure and interpreted by myself shows sinus rhythm of 93, normal TN interval, narrow QRS, no QT prolongation, normal axis, no evidence of STEMI. Wandering baseline in V3. Medical Decision Making Findings Facility Status: ED Holds, E process The plan was discussed with the patient, who demonstrates clear understanding of the plan and is in agreement with the plan unless otherwise noted in the chart. All questions have been answered, all concerns were addressed unless otherwise documented. I was available throughout their ED stay for frequent reassessment and questions. Differential Diagnoses (considered and possible or likely): [Fall, acute traumatic pain, alcohol intoxication, left ankle fracture versus dislocation versus combined process, foot fracture can not be excluded] ??Differential Diagnoses (considered and unlikely, not requiring evaluation currently): [No evidence of neurovascular injury] MDM Data Please see [facility] for the following: Independent Historians and external Records Review. Historian: [Patient] Independent Historians: ?[EMS] Medication Management: [Reviewed medication list] Social History and determinants: [Reviewed] Please see the body of the note for the following: Any independent int erpretations of ECG, imaging studies. All vitals signs/haemodynamics, ordered tests were independently reviewed and interpreted by myself. Nursing triage complaint and vitals reviewed, additional nursing notes were reviewed as available and I agree unless otherwise noted or documented in contradiction in the chart Vital Signs: Independently reviewed Labs: Independently interpreted Imaging: Independently interpreted Old Medical Records: Independently reviewed, see [facility] for relevant summary and information Pulse Oximetry: [98%] interpreted as [normal on room air] by me [Buckle Sewer Machine: Tachycardic Rate, Regular rhythm, no ectopy, sinus tachycardia. reviewed and interpreted by me] Additionally notably showing: [Hemodynamically stable, developed tachycardic during sedation with ketamine.] Laboratory studies reviewed. Mild anemia of 10.8 noted. No leukocytosis. No neutrophilic predominance. Normal platelets. Chemistry essentially notable for dehydration only. She is drunk with the alcohol at 160. X-ray was obtained showing displaced fracture of fibula diaphysis, fracture dislocation of malleolus medial and tibia. Tests considered but not ordered include: [Advanced imaging has been considerably does not requested by the orthopedist] Social Determinants of Health Impact: Patient was evaluated in [facility] [place] access to [facility] due to below par ratio of patient to medical providers. [Very likely poor psychosocial situation given the fact that the patient is wearing and states sponsored jewelry AKA of the ankle monitor are waiting] Comorbid Conditions Impacting Present Evaluation and Care/Treatment: [Suspect alcoholism] Management Discussions with other Healthcare Providers: [Dr. Lopez, orthopedic surgeon who recommended sedation and reduction] Treatment and Disposition Medication Management (Given or considered): [Pain management, ketamine for sedation]. See EMR for details Consideration for Hospitalization/Escalation/Deescalation of Care: Admission for observation has been considered, [however the patient is able to tolerate p.o., their symptoms are controlled, they are able to rely on oral medications, and their chief complaint/diagnosis can be managed on outpatient basis.] ?ED Course:?[While the patient is obviously intoxicated she needs the ankle reduced. I worried that despite of being potential alcoholic, providing her with propofol while would give better sedation, may result in respiratory arrest. This point I feel that the risks outweigh benefits. Ketamine was chosen for sedation. Unfortunately patient was remarkably combative as a result of the ketamine sedation and had an emergence reaction.] ?Shared decision making:?[Patient is hemodynamically stable for discharge home with follow with their primary care provider. [ ] Specific and cautious return precautions provided and discussed with full understanding. Any incidental findings were also discussed and follow up recommendations given. [] All questions answered. Patient/family were able to verbalize back return precautions. Patient/family agree to plan. Copies of imaging and laboratory studies were provided.] Code status:?FULL Please see the full Electronic Medical Record for full details of nursing documentation, medications list, other records of complete past medical history and conditions, vital signs, laboratory studies, and any radiologic study inte rpretations by radiologists. Portions of this note were completed using [employer] dictation software and as a result there may exist minor errors in spelling. I have reviewed elements of past family and social history and agree as included in note. Departure Disposition: 01 HOME / SELF CARE / HOMELESS Impression: Primary Impression: Closed left ankle fracture Additional Impressions: Acute traumatic pain Fall Alcohol intoxication Dehydration Condition: Critical Discharge Instructions: Ankle Fracture Referrals: REBECCA LOPEZ MD 2-4 days Please follow-up with the orthopedic surgeon in 2-3 days for your ankle fracture dislocation to see if we are going to need operative repair and assure appropriate healing Prescriptions Hydrocodone Bit/Acetaminophen 5/325 MG ([place] 5/325 MG) 5 Mg/325 Mg Tablet 1 TAB PO Q6H PRN for pain, #14 TAB Do not drink alcohol while taking this medicine, do not take more than prescribed Prov: KODY LOPEZ DO 10/02/24 Naproxen (Naproxen) 500 Mg Tablet 1 TAB PO Q12H, #20 TAB Prov: KODY LOPEZ DO 10/02/24 Education Educated: Patient Educated regarding: diagnosis, treatment, prognosis, need for follow up Signature Scribe Signature: No scribe Attestation: This note accurately reflects clinical decisions, work performed by myself, DO WALKER Adame NICHOLAS M DO Oct 02, 2024 19:05
[2024-10-02 19:10] VITALS: PULSE 109
[2024-10-02] MEDS: ketamine 50 mg/ml 10ml vial IV ONE (19:14)
[2024-10-02] MEDS: ondansetron/PF 4mg/2ml inj IV ONE (19:16)
--- NOTE | 2024-10-02 19:17 | RADIOLOGY REPORT ---
EXAM: DI ANKLE,LIMITED (AP/LAT) CLINICAL INDICATION: post reduction film TECHNIQUE: DI ANKLE,LIMITED (AP/LAT) Comparison: DI ANKLE,LIMITED (AP/LAT) on DOS: 10/02/24 FINDINGS/IMPRESSION: Significantly improved anatomic alignment status post reduction. Displaced distal fibular fracture. N ondisplaced distal tibial fracture. Minimally displaced posterior malleolar fracture.
[2024-10-02] MEDS ORDERED: HYDR-3965 PO (19:50)
[2024-10-02] MEDS ORDERED: NAPR-56 PO (19:50)
[2024-10-02 20:55] VITALS: BP 148/95; RESP 18; TEMP 98.8; O2SAT 97
== END 2024-10-02 21:07 | disposition home or self-care (01) ==
LOC: ER 16:49
DX: S82.52XA Displaced fracture of medial malleolus of left tibia, initial encounter for closed fracture (principal); F10.129 Alcohol abuse with intoxication, unspecified; E86.0 Dehydration; G89.11 Acute pain due to trauma; I10 Essential (primary) hypertension; Z90.49 Acquired absence of other specified parts of digestive tract; Z88.5 Allergy status to narcotic agent; Z79.899 Other long term (current) drug therapy; Z72.89 Other problems related to lifestyle; Y90.9 Presence of alcohol in blood, level not specified; W18.39XA Other fall on same level, initial encounter; Y93.89 Activity, other specified; Y92.89 Other specified places as the place of occurrence of the external cause; Y99.8 Other external cause status
CPT/HCPCS: 27762; 36415; 73600; 80048; 80320; 83690; 83735; 85025; 93005; 96361; 96374; 96375; 99152; 99285; J1171; J2405; J7030; 94760; A6449

== ENCOUNTER 2024-10-03 13:07 | Inpatient (IN) | payer MEDICAID ==
[~2024-10-03] VITALS: Ht 152.4 cm; Wt 118.2 kg
[~2024-10-03 13:07] MED LIST changes: +HYDR-3965 PO; +NAPR-56 PO
--- NOTE | 2024-10-03 15:43 | RADIOLOGY REPORT ---
CLINICAL INDICATION: f/u closed reduction LEFT TECHNIQUE: Frontal and lateral views of the left ankle. Comparison: DI ANKLE,LIMITED (AP/LAT) on DOS: 10/02/24, DI ANKLE,LIMITED (AP/LAT) on DOS: 10/02/24 FINDINGS/IMPRESSION: Overlying splint/cast partially obscures evaluation of fine osseous and soft tissue details. Slightly worsened alignment of a distal fibular diaphyseal oblique fracture when compared with 2024. Similar appearance of minimally displaced medial and posterior malleolar fractures. Suggestion of an ovoid lucency related to the medial talar dome which may represent an osteochondral lesion. Regional soft tissue swelling.
--- NOTE | 2024-10-03 15:47 | Physician Documentation ---
History of Present Illness ~ Chief Complaint: Ankle pain Stated Complaint: L BROKEN ANKLE Time Seen by MD: 14:50 Primary Medical Doctor: NO PMD HPI This 48-year-old female who was seen in the emergency department yesterday and left with instructions to follow up with Orthopedics in a couple of days. However, stationary engineer Dr. Hall then evaluated the patient's films in conjunction with orthopedist Dr. Estrella, and asked that the emergency department call her and direct her to return due to need for surgery. The patient presents due to this instruction. Tetanus witin 5 years: No Medication Reconciliation Allergies: Coded Allergies: No Known Allergies (Unverified , 10/03/24) Scheduled Ibuprofen (Ibuprofen), 1 TAB PO Q8H Naproxen (Naproxen), 1 TAB PO Q12H Scheduled PRN Hydrocodone Bit/Acetaminophen 5/325 MG ([place] 5/325 MG), 1 TAB PO Q6H PRN for pain Past Medical History Past Medical History: Hypertension, Extremity Fracture Past Surgical History: cholecystectomy Alcohol Use: Occasionally Drug Use: none Lives with: Family Lives In: Home Occupation: employed Review of Systems ROS As stated above in the HPI, otherwise all systems are reviewed and negative. Physical Exam Vital Signs: Temperature: 97.3, Source: Temporal, Heart Rate: 75, Respiratory Rate: 18, BP: 153/84, Pulse Oximetry: 100, Weight: 118.180 Oxygen Flow Rate: 0 Physical Exam General: Alert, no apparent distress. HEENT: PERRL, EOMI, no injection, moist mucous membranes. Neck: Full range of motion. Respiratory: Lungs clear, no respiratory distress. Chest: No accessory muscle use. Cardiovascular: Regular rate and rhythm, no murmurs. Gastrointestinal: Soft, nontender, nondistended. Bowels sounds present. Extremities: Splint LLE. Distal CMS intact. Neurologic: Oriented x4. Psychiatric: Normal mood and affect. Skin: Normal color, warm and dry. No edema, no ecchymosis. Progress Progress Note 1600: Spoke with Dr. Hall, stationary engineer. He plans surgery on patient in the morning and asks that she be NPO after midnight. 1609: Pre-op labs, CXR, EKG ordered. Hospitalist paged. Results/Orders Results/Orders Orders - LIZET DELONG TOOL DRESSER Ankle,Limited (Ap/Lat) (10/03/24 15:19) Chest,Single View (10/03/24 16:05) Cbc/Diff (10/03/24 16:05) CMP (10/03/24 16:05) Type And Screen (10/03/24 16:05) Pt Inr (10/03/24 16:05) Hcg Serum Ql (10/03/24 16:05) * Iv Access / Saline Lock * (10/03/24 16:08) Page Hospitalist (10/03/24 16:10) Completed Orders - LIZET DELONG TOOL DRESSER Ankle,Limited (Ap/Lat) (10/03/24 15:19) Chest,Single View (10/03/24 16:05) Electrocardiogram (10/03/24 ) Hydrocodone/Apap 10/325 ([place] 10/325mg (10/03/24 16:10) Ondansetron Disint. Tablet (Zofran Odt T (10/03/24 16:10) Medications Received in ER Medications (Trade) Dose Ordered Sig/Bladimir Route PRN Reason Start Time Stop Time Status Last Admin Dose Admin ([place] 10/325mg tab) 1 tab ONCE ONCE PO 10/03/24 16:10 10/03/24 16:11 DC 10/03/24 16:17 1 TAB (Zofran ODT tablet) 4 mg ONCE ONCE PO 10/03/24 16:10 10/03/24 16:11 DC 10/03/24 16:17 4 MG Vital Signs 10/03/24 10/03/24 13:08 16:17 Temp 97.3 Pulse 75 Resp 18 16 B/P (MAP) 153/84 Pulse Ox 100 O2 Flow Rate 0 EKG/XRAY/CT/US/VASC/MRI Bone/Soft Tissue X-Ray (Spine) : Additional Comment [facility] [address] , [place] - [address] DIAGNOSTIC RADIOLOGY Patient: DONNA LEDESMA Medical Record: [id number] [facility] : 1975, Age: 48 Sex: Female Location: ER Patient Status: REG ER Service Date/Time: 10/03/24/ 1519 Ordering Physician: LIZET DELONG NP Exam: ANKLE,LIMITED (AP/LAT) CLINICAL INDICATION: f/u closed reduction LEFT TECHNIQUE: Frontal and lateral views of the left ankle. Comparison: DI ANKLE,LIMITED (AP/LAT) on DOS: 10/02/24, DI ANKLE,LIMITED (AP/LAT) on DOS: 10/02/24 FINDINGS/IMPRESSION: Overlying splint/cast partially obscures evaluation of fine osseous and soft tissue details. Slightly worsened alignment of a distal fibular diaphyseal oblique fracture when compared with 10/02/2024. Similar appearance of minimally displaced medial and posterior malleolar fractures. Suggestion of an ovoid lucency related to the medial talar dome which may represent an osteochondral lesion. Regional soft tissue swelling. Electronically Signed by:GUNNAR CHIRINOS MD Date & Time: 10/03/24 1540 Dictated by: GUNNAR CHIRINOS MD Dictation date and time: 10/03/24 1514 Primary Care Provider: NO PRIMARY CARE PROVIDER cc: LIZET DELONG NP ~ Medical Decision Making Additional Comment This 48-year-old female who was directed back to the emergency department on the advice of Podiatry. He was contacted and asked that she be made NPO after midnight for planned surgery in the morning. Patient was agreeable. IPA was consulted to evaluate the patient for admission. Departure Time of Disposition: 17:04 Disposition: 09 ADMITTED INPATIENT Admitted to Inpatient Unit: yes, to hospitalist Impression: Primary Impression: Closed left ankle fracture Referrals: NO PRIMARY CARE PROVIDER (PCP) Signature Scribe Signature: no scribe Attestation: The note accurately reflects work and decisions made by me.Lizet Padron NP 10/03/24 17:04 LIZET DELONG NP Oct 03, 2024 15:47
[2024-10-03] MEDS: HYDROcodone/acetaminophen 10/325mg tab PO ONE (16:17)
[2024-10-03] MEDS: ondansetron 4mg rapidly disintigrating tab PO ONE (16:17)
[2024-10-03] MEDS ORDERED: HYDROmorphone/PF 0.2 MG/ML SYRINGE IV PRN (16:35)
[2024-10-03] MEDS ORDERED: acetaminophen 325mg tablet PO PRN ×2 (16:35)
[2024-10-03] MEDS ORDERED: magnesium sulf-water 4G/100mL 100 ML IV PRN (16:35)
[2024-10-03] MEDS ORDERED: mag hydrox/Alum hydrox/simeth 30ml oral suspension PO PRN (16:35)
[2024-10-03] MEDS ORDERED: magnesium hydroxide 30ml (MOM) UD suspension PO PRN (16:35)
[2024-10-03] MEDS ORDERED: haloperidol lactate 5mg/ml inj IM PRN (16:35)
[2024-10-03] MEDS ORDERED: diazepam inj 5 MG/ML inj. IV PRN (16:35)
[2024-10-03] MEDS ORDERED: potassium Cl 40MEQ/1/2NS 520ml 520 ML IV PRN (16:35)
[2024-10-03] MEDS ORDERED: HYDROmorphone inj. 0.5 MG/0.5 ML DISP.SYRIN IV PRN (16:35)
[2024-10-03] MEDS ORDERED: potassium Cl 20 mEq SR tablet PO PRN ×2 (16:35)
[2024-10-03] MEDS ORDERED: haloperidol 5mg tablet PO PRN (16:35)
[2024-10-03] MEDS ORDERED: HYDROcodone/acetaminophen 5mg/325mg tablet PO PRN (16:35)
[2024-10-03] MEDS ORDERED: magnesium sulf-water 2g/50mL 50 ML IV PRN (16:35)
--- NOTE | 2024-10-03 16:44 | RADIOLOGY REPORT ---
EXAM: DI CHEST,SINGLE VIEW TECHNIQUE: Single frontal chest radiograph CLINICAL HISTORY: pre op COMPARISON: DI CHEST,SINGLE VIEW on DOS: 10/29/23, CHEST,SINGLE VIEW on DOS: 04/08/19 Findings/Impression: Frontal chest radiograph demonstrates no acute osseous or superficial soft tissue abnormalities. The trachea is midline. The cardiac silhouette and mediastinum are within normal limits. No pneumothorax, pleural effusions, or consolidations.
--- NOTE | 2024-10-03 16:51 | ELECTROCARDIOGRAPH REPORT ---
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
--- NOTE | 2024-10-03 17:11 | HISTORY AND PHYSICAL ---
History & Physical Providers to CC ~ History of Present Illness Reason for Admit\Complaint: Left ankle fracture History of Present Illness This is a 48-year-old female who was at the [place] yesterday and was going down an embankment and slipped and fell and was unable to bear weight on her left lower extremity- the patient has a left ankle fracture and on-call outdoor studies professor Dr. Hall he is going to take the patient to the OR tomorrow the patient is admitted to the ortho floor on a air sampling and monitoring since the patient regularly drinks alcohol she states she drinks less than she did three years ago at that juncture she was drinking half a bottle of Tequila 3 times a week. Allergies: Coded Allergies: No Known Allergies (Unverified , 10/03/24) Home Medications Home Medications Active [place] 5/325 MG (Acetaminophen/Hydrocodone Bitart) 5 Mg/325 Mg Tablet 1 Tab PO Q6H PRN Do not drink alcohol while taking this medicine, do not take more than prescribed Naproxen 500 Mg Tablet 1 Tab PO Q12H Ibuprofen 600 Mg Tablet 1 Tab PO Q8H 10 Days with food Past Medical History Past Medical History Hypertension Past Surgical History Surgical History Comment Cholecystectomy Family History Family History: FH: diabetes mellitus MOTHER Past Social History Social History Comment Patient denes history of smoking, drinks alcohol couple of times a week, denies any illicit drug use Full Code Status ROS ROS Except for positives in the HPI the rest of the 14 point review systems is negative Exam Vitals: Vital Signs Date Time Temp Pulse Resp B/P (MAP) Pulse Ox O2 Delivery O2 Flow Rate FiO2 10/03/24 16:17 16 10/03/24 13:08 97.3 75 153/84 100 0 General: Gen. No acute distress alert and oriented 4, morbidly obese Lungs clear to ascultation bilaterally, no wheezes rales or rhonchi appreciated Heart normal sinus rhythm no murmurs rubs or clicks noted Abdomen soft nontender bowel sounds are normoactive Lower extremities no clubbing cyanosis, nor edema appreciated bilaterally Advance Care Planning Advanced Care plannin - 30 Minutes Problems: (1) Closed left ankle fracture Status: Acute Additional Plan # left traumatic closed ankle fracture- Dr. Hall outdoor studies professor is taking the patient to surgery in the a.m.. # hypertension Awaiting med reconciliation # regular alcohol use The patient states she drinks less alcohol than previously which three years ago she would drank half a bottle of Tequila 3 times a week. With that said I am covering the patient for alcohol withdrawal # DVT prophylaxis SQ Lovenox I spent a total of 17 minutes on reviewing various resuscitative measures/ ACP with the patient at the time of admission. The patient has decided on a full code status Date of Service: Oct 03, 2024 Billing Provider: MARIJA GRANT DO Common Visit Codes: [id number] INP/OBS CARE (HIGH) Secondary Visit Codes: [id number] CARE PLAN 30 MINUTES MARIJA GRANT DO Oct 03, 2024 17:11
[2024-10-03 17:29] LABS: BASOPHILS % (AUTO) 0.3 % (0-1); EOSINOPHILS # (AUTO) 0.1 X10'3 (0-0.9); EOSINOPHILS % (AUTO) 1.4 % (0-6); HEMATOCRIT 32.8 % (35.0-45.0); HEMOGLOBIN 10.6 g/dl (12.0-16.0); LYMPHOCYTES # (AUTO) 1.8 X10'3 (1.1-4.8); LYMPHOCYTES % (AUTO) 24.9 % (21-51); MEAN CORPUSCULAR HEMOGLOBIN 27.4 PG (27.0-31.0); MEAN CORPUSCULAR HGB CONC 32.2 g/dL (33.0-36.5); MEAN CORPUSCULAR VOLUME 84.9 FL (78-98); MEAN PLATELET VOLUME 7.5 FL (7.4-10.4); MONOCYTES # (AUTO) 0.5 X10'3 (0-0.9); MONOCYTES % (AUTO) 7.3 % (2-12); NEUTROPHILS # (AUTO) 4.7 X10'3 (1.8-7.7); NEUTROPHILS % (AUTO) 66.1 % (42-75); PLATELET COUNT 302 X10'3 (140-440); RED BLOOD COUNT 3.87 X10'6 (4.20-5.60); RED CELL DISTRIBUTION WIDTH 17.6 % (11.5-14.5); WHITE BLOOD COUNT 7.1 X10'3 (4.5-11.0)
[2024-10-03 17:31] LABS: PROTHROMBIN TIME 9.6 SECONDS (9.0-12.0)
[2024-10-03 17:33] LABS: INR 0.9 INR
[2024-10-03 17:37] LABS: ALANINE AMINOTRANSFERASE 86 U/L (12-78); ALBUMIN 2.9 G/DL (3.4-5.0); ALBUMIN/GLOBULIN RATIO 0.7 (1.1-1.5); ALKALINE PHOSPHATASE 117 IU/L (46-116); ANION GAP 8 (8-16); ASPARTATE AMINO TRANSFERASE 69 U/L (10-37); BILIRUBIN,TOTAL 0.4 MG/DL (0.1-1.0); BLOOD UREA NITROGEN 9 MG/DL (7-18); BUN/CREATININE RATIO 18.8 (10.0-20.0); CHLORIDE 108 MMOL/L (99-107); CREATININE 0.48 MG/DL (0.40-0.90); GLUCOSE 104 MG/DL (70-104); POTASSIUM 3.9 MMOL/L (3.5-5.1); SODIUM 141 MMOL/L (135-145); TOTAL CARBON DIOXIDE 25.2 MMOL/L (24-32); eCRCL 104 ML/MIN; eGFR > 90 ML/MIN
[2024-10-03 17:40] LABS: HCG SERUM QL NEGATIVE
[2024-10-03] MEDS: K and/or MAG REPLACEMENT MC SCH (19:42)
[2024-10-03] MEDS: normal saline 1000ml 1,000 ML IV SCH (20:24)
[2024-10-03] MEDS: thiamine 100mg tablet PO SCH (20:24)
[2024-10-03] MEDS: docusate sod 100mg capsule PO SCH (20:24)
[2024-10-03] MEDS: HYDROmorphone 1 mg/ml syringe IV PRN (21:01)
[2024-10-04] VITALS (20 sets, daily range): BP systolic 95–162; BP diastolic 47–93; PULSE 67–83; RESP 14–20; TEMP 98.3–99.6; O2SAT 92–98
[2024-10-04] MEDS: HYDROcodone/acetaminophen 10/325mg tab PO PRN (05:12)
[2024-10-04 05:15] LABS: BASOPHILS % (AUTO) 0.6 % (0-1); EOSINOPHILS # (AUTO) 0.1 X10'3 (0-0.9); EOSINOPHILS % (AUTO) 2.7 % (0-6); HEMATOCRIT 27.7 % (35.0-45.0); HEMOGLOBIN 8.9 g/dl (12.0-16.0); LYMPHOCYTES # (AUTO) 1.5 X10'3 (1.1-4.8); LYMPHOCYTES % (AUTO) 28.1 % (21-51); MEAN CORPUSCULAR HEMOGLOBIN 27.3 PG (27.0-31.0); MEAN CORPUSCULAR HGB CONC 32.3 g/dL (33.0-36.5); MEAN CORPUSCULAR VOLUME 84.5 FL (78-98); MEAN PLATELET VOLUME 7.4 FL (7.4-10.4); MONOCYTES # (AUTO) 0.4 X10'3 (0-0.9); MONOCYTES % (AUTO) 7.7 % (2-12); NEUTROPHILS # (AUTO) 3.2 X10'3 (1.8-7.7); NEUTROPHILS % (AUTO) 60.9 % (42-75); PLATELET COUNT 253 X10'3 (140-440); RED BLOOD COUNT 3.28 X10'6 (4.20-5.60); RED CELL DISTRIBUTION WIDTH 17.5 % (11.5-14.5); WHITE BLOOD COUNT 5.2 X10'3 (4.5-11.0)
[2024-10-04 05:25] LABS: INR 0.9 INR; PROTHROMBIN TIME 9.7 SECONDS (9.0-12.0)
[2024-10-04 05:41] LABS: ALANINE AMINOTRANSFERASE 61 U/L (12-78); ALBUMIN 2.3 G/DL (3.4-5.0); ALBUMIN/GLOBULIN RATIO 0.7 (1.1-1.5); ALKALINE PHOSPHATASE 88 IU/L (46-116); ANION GAP 5 (8-16); ASPARTATE AMINO TRANSFERASE 33 U/L (10-37); BILIRUBIN,TOTAL 0.2 MG/DL (0.1-1.0); BLOOD UREA NITROGEN 10 MG/DL (7-18); BUN/CREATININE RATIO 17.9 (10.0-20.0); CALCIUM 8.4 MG/DL (8.5-10.1); CHLORIDE 111 MMOL/L (99-107); CREATININE 0.56 MG/DL (0.40-0.90); GLUCOSE 89 MG/DL (70-104); LIPASE 17 U/L (16-77); MAGNESIUM 1.7 MG/DL (1.5-2.4); PHOSPHORUS 2.8 MG/DL (2.3-4.5); POTASSIUM 3.7 MMOL/L (3.5-5.1); SODIUM 142 MMOL/L (135-145); TOTAL CARBON DIOXIDE 25.6 MMOL/L (24-32); TOTAL PROTEIN 5.6 G/DL (6.4-8.2); eCRCL 89 ML/MIN; eGFR > 90 ML/MIN
[2024-10-04] MEDS: multivitamins, therapeutics tablet PO SCH (07:42)
[2024-10-04] MEDS: ondansetron/PF 4mg/2ml inj IV PRN (07:53)
--- NOTE | 2024-10-04 13:22 | RADIOLOGY REPORT ---
CLINICAL INFORMATION: 48 years old, Female; Ankle fracture left side fracture in a cast. TECHNIQUE: Axial CT images of the left ankle were obtained without IV contrast. Coronal and sagittal reformatted images were obtained, reviewed, and stored. All CT scans at this medical facility are pe rformed using dose modulation techniques as appropriate to a performed exam including the following: Automated exposure control was utilized; adjustment of the MA and/or KV according to patient size; an d use of iterative reconstruction technique. CTDIvol = 14.5 mGy DLP = 426.46 mGy-cm COMPARISON: Radiographs dated 10/03/2024. FINDINGS: Obliquely oriented spiral fracture of the distal fibular diaphysis above the level of the s yndesmosis. There is up to 1.4 cm lateral displacement of the distal fracture component relative to the more proximal fracture component. There is comminution of the fracture site. There is a fracture of the posterior aspect of the tibial plafond involving the posterior malleolus with multiple osseous fragments along the posterior aspect of the tibial plafond, with the largest measuring up to 1.8 x 0 .3 cm. There are osseous fragments partially interposed between the medial malleolus and medial aspe ct of the talus., measuring up to 0.7 cm 0.9 cm, respectively, with the more caudal osseous fragment in close proximity to the inferior aspect of the medial malleolus, suspected avulsion fragment. The m ore cephalad fragment abuts the medial aspect of the talar dome. There is prominent cystic change at the medial aspect of the talar dome measuring up to 2.0 cm in greatest dimension with surrounding sc lerosis. No osseous defect of the talar dome. There is moderate soft tissue swelling around the ankle and adjacent to the fracture sites. IMPRESSION: 1. Obliquely oriented distal fibula fracture above the level of the syndesmosis with displacement as described above. 2. Fracture of the posterior aspect of the tibial plafond/ posterior malleolus as described above. 3. Osseous fragments adjacent to the medial malleolus and medial talar dome as described above. The m ore caudal osseous fragment appears to be an avulsion fracture from the medial malleolus. The more ce phalad osseous fragment is interposed between the medial talar dome and tibial plafond, abutting the medial talar dome. There is adjacent cystic change and sclerosis in the medial talar dome. 4. Additional findings as described above.
[2024-10-04] MEDS ORDERED: cloNIDine hcl/PF 100mcg/ml inj ONE (16:29)
[2024-10-04] MEDS ORDERED: midazolam 1 mg/ML 2ml injection ONE (17:40)
[2024-10-04] MEDS ORDERED: ROPIVAcaine 0.5% (5mg/ml) 30ml vial ONE (17:40)
[2024-10-04] MEDS ORDERED: fentaNYL/PF 50MCG/1 ML 2ML syringe ONE (17:40)
[2024-10-04] MEDS ORDERED: propofol inj 20 ML IV ONE (17:40)
[2024-10-04] MEDS ORDERED: dexamethasone sod phosphate 4mg/ml inj. ONE (17:43)
[2024-10-04] MEDS ORDERED: sevoflurane 250ml liquid IH ONE (18:00)
[2024-10-04] MEDS ORDERED: ceFAZolin 1000mg inj ONE ×2 (18:27)
[2024-10-04] MEDS: bacitracin 15gm ointment TP ONE (19:20)
[2024-10-04] MEDS ORDERED: bacitracin 15gm ointment TP ONE (19:22)
[2024-10-04] MEDS ORDERED: BUPIVAcaine 0.5% inj/PF 30 ML ONE (19:23)
--- NOTE | 2024-10-04 20:09 | PROGRESS NOTE ---
Daily Progress Note Providers to CC ~ Antibiotic Timeout Antibiotic Ordered?: No Subjective The patient has no signs of alcohol withdrawal and the patient informs me that she over estimates if anything how much alcohol she drinks. The patient is a little sleepy from the pain medication otherwise she has no acute complaints in his awaiting to go to the OR this evening. Objective Vital Signs Date Time Temp Pulse Resp B/P (MAP) Pulse Ox O2 Delivery O2 Flow Rate FiO2 10/04/24 16:45 83 16 94 10/04/24 10:00 98.8 151/85 (107) Room Air 10/04/24 00:54 0.0 Result Diagram: 10/04/2442810/04/24428 Gen. No acute distress alert and oriented 4, morbidly obese Lungs clear to ascultation bilaterally, no wheezes rales or rhonchi appreciated Heart normal sinus rhythm no murmurs rubs or clicks noted Abdomen soft nontender bowel sounds are normoactive Lower extremities no clubbing cyanosis, nor edema appreciated bilaterally Coagulation Studies Laboratory Tests Test 10/04/24 04:29 Prothrombin Time 9.7 SECONDS (9.0-12.0) INR International Normalized Ratio 0.9 INR Coagulation Comments Problem\Assessment\Plan Problems/Diagnosis: (1) Closed left ankle fracture # left traumatic closed ankle fracture- Dr. Hall property assistant is taking the patient to surgery this evening # hypertension Not on any antihypertensive medications on the patient's med list PRN IV hydralazine # regular alcohol use The patient states she drinks less alcohol than previously which three years ago she would drank half a bottle of Tequila 3 times a week. With that said I am covering the patient for alcohol withdrawal # DVT prophylaxis SQ Lovenox Date of Service: Oct 04, 2024 Billing Provider: MARIJA GRANT DO Common Visit Codes: [id number] INP/OBS CARE(HIGH) MARIJA GRANT DO Oct 04, 2024 20:09
[2024-10-04] MEDS ORDERED: naloxone 0.4 mg/ml inj IV PRN (20:10)
[2024-10-04] MEDS ORDERED: hydrALAZINE 20mg/ml inj. IV PRN ×2 (20:10→20:20)
[2024-10-04] MEDS: BUPIVAcaine 0.5% inj/PF 30 ml vial IJ ONE (20:18)
[2024-10-04] MEDS ORDERED: morphine 4 MG/ML inj SYRINge IV PRN (20:20)
[2024-10-04] MEDS ORDERED: HYDROmorphone/PF 0.2 MG/ML SYRINGE IV PRN ×2 (20:20)
[2024-10-04] MEDS: ringers solution, lacted 1,000 ML IV SCH (20:20)
[2024-10-04] MEDS ORDERED: ondansetron/PF 4mg/2ml inj IV PRN (20:20)
[2024-10-04] MEDS ORDERED: morphine 2 MG/ML inj. syringe IV PRN (20:20)
[2024-10-04] MEDS ORDERED: labetalol 20mg/4ml (5mg/ml) syringe IV PRN (20:20)
[2024-10-04] MEDS: Melatonin 3mg tablet PO ONE (23:53)
[2024-10-05] VITALS (9 sets, daily range): BP systolic 129–170; BP diastolic 55–92; PULSE 68–96; RESP 16–18; TEMP 97.6–98.4; O2SAT 93–99
[2024-10-05 04:57] LABS: BASOPHILS % (AUTO) 0.2 % (0-1); EOSINOPHILS % (AUTO) 0 % (0-6); HEMATOCRIT 31.7 % (35.0-45.0); HEMOGLOBIN 10.3 g/dl (12.0-16.0); LYMPHOCYTES # (AUTO) 0.8 X10'3 (1.1-4.8); LYMPHOCYTES % (AUTO) 12.2 % (21-51); MEAN CORPUSCULAR HEMOGLOBIN 27.4 PG (27.0-31.0); MEAN CORPUSCULAR HGB CONC 32.4 g/dL (33.0-36.5); MEAN CORPUSCULAR VOLUME 84.6 FL (78-98); MEAN PLATELET VOLUME 7.3 FL (7.4-10.4); MONOCYTES # (AUTO) 0.2 X10'3 (0-0.9); MONOCYTES % (AUTO) 3.2 % (2-12); NEUTROPHILS # (AUTO) 5.6 X10'3 (1.8-7.7); NEUTROPHILS % (AUTO) 84.4 % (42-75); PLATELET COUNT 296 X10'3 (140-440); RED BLOOD COUNT 3.75 X10'6 (4.20-5.60); RED CELL DISTRIBUTION WIDTH 16.9 % (11.5-14.5); WHITE BLOOD COUNT 6.6 X10'3 (4.5-11.0)
[2024-10-05 05:17] LABS: ALANINE AMINOTRANSFERASE 120 U/L (12-78); ALBUMIN 2.5 G/DL (3.4-5.0); ALBUMIN/GLOBULIN RATIO 0.6 (1.1-1.5); ALKALINE PHOSPHATASE 112 IU/L (46-116); ANION GAP 5 (8-16); ASPARTATE AMINO TRANSFERASE 98 U/L (10-37); BILIRUBIN,TOTAL 0.3 MG/DL (0.1-1.0); BLOOD UREA NITROGEN 6 MG/DL (7-18); BUN/CREATININE RATIO 11.5 (10.0-20.0); CALCIUM 9.1 MG/DL (8.5-10.1); CHLORIDE 110 MMOL/L (99-107); CREATININE 0.52 MG/DL (0.40-0.90); GLUCOSE 160 MG/DL (70-104); LIPASE 20 U/L (16-77); MAGNESIUM 1.9 MG/DL (1.5-2.4); PHOSPHORUS 1.9 MG/DL (2.3-4.5); POTASSIUM 4.1 MMOL/L (3.5-5.1); SODIUM 142 MMOL/L (135-145); TOTAL CARBON DIOXIDE 26.6 MMOL/L (24-32); TOTAL PROTEIN 6.6 G/DL (6.4-8.2); eCRCL 96 ML/MIN; eGFR > 90 ML/MIN
[2024-10-05] MEDS ORDERED: glucagon, human recombinant 1mg kit SUBCUT PRN (06:55)
[2024-10-05] MEDS ORDERED: dextrose 50%-water 50ml dispensing syringe IV PRN ×2 (06:55)
[2024-10-05] MEDS ORDERED: DEXTROSE 15 GM of carb/4 tabs (each vial/BOTTLE has 4 tablets) PO PRN ×2 (06:55)
[2024-10-05] MEDS: INSULIN LISPRO 100 UNIT/ML INSULN.PEN MULTI-DOSE SQ SCH (07:00)
[2024-10-05] MEDS: enoxaparin 30mg/0.3ml syringe SQ SCH (08:15)
--- NOTE | 2024-10-05 17:00 | PROGRESS NOTE ---
Daily Progress Note Providers to CC ~ Antibiotic Timeout Antibiotic Ordered?: No Subjective No acute events overnight. Patient examined at bedside. No new complaints not in acute distress. Patient denies chest pain, sob, palpitations, abdominal pain, n/v/d. s/p ORIF left ankle on 10/04/24. Vss, labs unremarkable. Not cleared by PT, continue PT. Objective Vital Signs Date Time Temp Pulse Resp B/P (MAP) Pulse Ox O2 Delivery O2 Flow Rate FiO2 10/05/24 10:00 97.9 73 16 140/66 (90) 96 Room Air 10/05/24 08:00 4.0 Result Diagram: 10/05/2444410/05/24444 Physical Exam General: Generalized weakness, A&Ox 3, NAD HEENT: Normocephalic, PERRLA Neck: Supple, trachea midline, no JVD Chest: Clear to auscultation bilaterally Cardiovascular: RRR, S1&S2 GI: Soft and nontender Extremities: No cyanosis/clubbing/or edema JEWELRY DIPPER: CN II-XII intact, no focal deficits Musculoskeletal: No paraspinal muscle tenderness, no muscle spasm Skin: Incision sutured closed no s/s infection Coagulation Studies Laboratory Tests Test 10/05/24 04:45 Prothrombin Time 10.0 SECONDS (9.0-12.0) INR International Normalized Ratio 1.0 INR Coagulation Comments Problem\Assessment\Plan Problems/Diagnosis: (1) Closed left ankle fracture # Left traumatic closed ankle fracture # s/p ORIF (on 10/04/24 Dr. Hall) -10/05: not cleared by PT, continue PT # Hypertension Not on any antihypertensive medications on the patient's med list PRN IV hydralazine # Alcohol abuse The patient states she drinks less alcohol than previously which three years ago she would drank half a bottle of Tequila 3 times a week. on alcohol withdrawal protocol DVT/VTE prophylaxis: Lovenox Date of Service: Oct 05, 2024 Billing Provider: IVELISSE FIGUEROA Common Visit Codes: [id number] INP/OBS CARE(HIGH) IVELISSE FIGUEROA Oct 05, 2024 17:00
[2024-10-05] MEDS ORDERED: HYDROcodone/acetaminophen 5mg/325mg tablet PO PRN (23:25)
[2024-10-05] MEDS: LORazepam 1 MG tablet PO PRN (23:28)
[2024-10-05] MEDS ORDERED: morphine 2 MG/ML inj. syringe IV PRN (23:30)
[2024-10-05] MEDS: ketorolac trometh 15mg/ml vial 15 MG/ML ML IV ONE (23:43)
[2024-10-06 02:35] VITALS: O2SAT 97
[2024-10-06 02:45] VITALS: O2SAT 96
[2024-10-06 04:54] LABS: BASOPHILS % (AUTO) 0.3 % (0-1); EOSINOPHILS # (AUTO) 0.1 X10'3 (0-0.9); EOSINOPHILS % (AUTO) 0.8 % (0-6); HEMATOCRIT 26.6 % (35.0-45.0); HEMOGLOBIN 8.9 g/dl (12.0-16.0); LYMPHOCYTES # (AUTO) 2.3 X10'3 (1.1-4.8); LYMPHOCYTES % (AUTO) 30.1 % (21-51); MEAN CORPUSCULAR HEMOGLOBIN 28.4 PG (27.0-31.0); MEAN CORPUSCULAR HGB CONC 33.6 g/dL (33.0-36.5); MEAN CORPUSCULAR VOLUME 84.6 FL (78-98); MEAN PLATELET VOLUME 7.5 FL (7.4-10.4); MONOCYTES # (AUTO) 0.5 X10'3 (0-0.9); NEUTROPHILS # (AUTO) 4.7 X10'3 (1.8-7.7); NEUTROPHILS % (AUTO) 61.8 % (42-75); PLATELET COUNT 277 X10'3 (140-440); RED BLOOD COUNT 3.14 X10'6 (4.20-5.60); WHITE BLOOD COUNT 7.6 X10'3 (4.5-11.0)
[2024-10-06 05:05] LABS: PROTHROMBIN TIME 9.8 SECONDS (9.0-12.0)
[2024-10-06 05:17] LABS: ALANINE AMINOTRANSFERASE 80 U/L (12-78); ALBUMIN 2.2 G/DL (3.4-5.0); ALBUMIN/GLOBULIN RATIO 0.6 (1.1-1.5); ALKALINE PHOSPHATASE 88 IU/L (46-116); ANION GAP 6 (8-16); ASPARTATE AMINO TRANSFERASE 55 U/L (10-37); BILIRUBIN,TOTAL 0.3 MG/DL (0.1-1.0); BLOOD UREA NITROGEN 12 MG/DL (7-18); BUN/CREATININE RATIO 20.3 (10.0-20.0); CALCIUM 8.6 MG/DL (8.5-10.1); CHLORIDE 111 MMOL/L (99-107); CREATININE 0.59 MG/DL (0.40-0.90); GLUCOSE 97 MG/DL (70-104); LIPASE 23 U/L (16-77); MAGNESIUM 1.7 MG/DL (1.5-2.4); PHOSPHORUS 3.4 MG/DL (2.3-4.5); POTASSIUM 3.6 MMOL/L (3.5-5.1); SODIUM 145 MMOL/L (135-145); TOTAL CARBON DIOXIDE 28.2 MMOL/L (24-32); TOTAL PROTEIN 5.6 G/DL (6.4-8.2); eCRCL 85 ML/MIN; eGFR > 90 ML/MIN
[2024-10-06 06:00] VITALS: BP 126/75; PULSE 65; RESP 18; TEMP 97.6; O2SAT 96
[2024-10-06] MEDS: HYDROmorphone inj. 0.5 MG/0.5 ML DISP.SYRIN IV PRN (07:06)
[2024-10-06 07:30] VITALS: RESP 18; O2SAT 92
[2024-10-06] MEDS ORDERED: HYDR-3965 PO (09:51)
[2024-10-06 10:00] VITALS: BP 138/77; PULSE 89; RESP 18; TEMP 97.8; O2SAT 88
[2024-10-06] MEDS: HYDROcodone/acetaminophen 10/325mg tab PO PRN (10:19)
[2024-10-06 15:16] VITALS: PULSE 85; RESP 16; O2SAT 93
[2024-10-06] MEDS ORDERED: ASPI81TA52 PO (15:58)
--- NOTE | 2024-10-06 18:14 | DISCHARGE SUMMARY ---
Discharge Summary Providers to CC ~ Discharge Summary Admission Diagnosis: Left ankle fracture acute, alcohol use disorder Hospital Course DATE OF ADMISSION: 10/03/24 DATE OF DISCHARGE: 10/06/24 Discharge Diagnosis\Comment: Left traumatic closed ankle fracture s/p ORIF (on 10/04/24 Dr. Hall) Hypertension Alcohol abuse Operations\Procedures: ORIF, left ankle Consultants: Сергей Espinoza Complications: None Condition on DC: Stable New Medications: Aspirin (Aspirin EC) 81 Mg Tablet.dr 1 TAB PO DAILY for 30 Days, #30 TAB Hydrocodone Bit/Acetaminophen 5/325 MG ([place] 5/325 MG) 5 Mg/325 Mg Tablet 1 TAB PO Q4H PRN for moderate or severe pain for 3 Days, #18 TAB Discontinued Medications: Ibuprofen (Ibuprofen) 600 Mg Tablet 1 TAB PO Q8H for pain for 10 Days, #30 TAB 0 Refills with food Discharge Summary: History of Present Illness This is a 48-year-old female who was at the [place] yesterday and was going down an embankment and slipped and fell and was unable to bear weight on her left lower extremity- the patient has a left ankle fracture and on-call net software architect Dr. Hall he is going to take the patient to the OR tomorrow the patient is admitted on a soldering technician since the patient regularly drinks alcohol she states she drinks less than she did three years ago at that juncture she was drinking half a bottle of Tequila 3 times a week. Hospital Course Diagnostic findings were notable for distal fibular diaphyseal oblique fracture of left ankle and CT of left ankle revealing obliquely oriented distal fibular fracture with displacement, fracture of posterior aspect of tibial plafond/posterior malleolus. Case was consulted with net software architect Dr. Hall. Patient underwent ORIF of left ankle on 10/04/24 without complication. Patient was treated with supportive care. Patient did not experience further complications throughout the entire hospital stay. Patient was seen and examined on the day of discharge. On day of discharge, vss and labs unremarkable. Patient was evaluated by physical therapy service and was cleared for discharge with HH. All labs, diagnostic workups, discharge plan discussed with patient in details during visit before discharge. All questions and concerns answered to the best of my professional knowledge. Patient is to be discharged with HH and to follow-up with PCP and Dr. Hembre within 2 weeks. Physical Exam General: A&Ox 3, NAD HEENT: Normocephalic, PERRLA Neck: Supple, trachea midline, no JVD Chest: Clear to auscultation bilaterally Cardiovascular: RRR, S1&S2 GI: Soft and nontender Extremities: No cyanosis/clubbing/or edema CREDIT CARD INTERVIEWER: CN II-XII intact, no focal deficits Musculoskeletal: No paraspinal muscle tenderness, no muscle spasm Skin: Incision sutured closed no s/s infection *Problems/Diagnosis: (1) Closed left ankle fracture Status: Acute Total Time Spent on D/C: > 30 Minutes Date of Service: Oct 06, 2024 Billing Provider: IVELISSE FIGUEROA Common Visit Codes: 08116-OAU/OBS DISCH DAY >30min IVELISSE FIGUEROA Oct 06, 2024 18:07
[2024-10-08] MEDS ORDERED: folic acid 1mg tablet PO SCH (08:00)
--- NOTE | 2024-10-11 19:24 | OPERATIVE REPORT ---
DATE OF SURGERY: 10/04/2024 DICTATING PHYSICIAN: Leanne Villegas DPM PREOPERATIVE DIAGNOSIS: Left ankle fracture dislocation. POSTOPERATIVE DIAGNOSIS: Left ankle fracture dislocation.. PROCEDURE PERFORMED: Left ankle open reduction internal fixation with syndesmotic repair. SURGEON: Leanne Villegas DPM MUSIC THEORY TEACHER: LES Hester Dr.'s presence was necessary for the efficient and timely completion of this complicated fracture. ANESTHESIA: General with a popliteal and adductor canal regional block by the anesthesia provider. INJECTABLES: 10 mL of 0.5% Marcaine plain. HEMOSTASIS: Pneumatic left thigh tourniquet set at 275 mmHg and electrocautery. MATERIALS: [place] intramedullary fibular nail with 4.0 mm cortical fully threaded screws for the syndesmosis. COMPLICATIONS: None. FINDINGS: Fibula fracture above the level of the ankle joint well reduced after nail insertion. Syndesmotic widening upon stress. Post syndesmotic fixation, there was no medial gapping. Sponge and needle count was correct. ESTIMATED BLOOD LOSS: 10 mL. INDICATIONS FOR PROCEDURE: The patient is a 48-year-old female who presented to the hospital with significant left ankle pain and deformity after a fall. X-rays revealed she had a significant ankle dislocation with associated fibular fracture. Closed reduction was performed by the Emergency Department provider. Upon CT scan, no medial malleolar fracture or posterior malleolar fracture was noted. The findings were discussed in detail with the patient. Discussed the risks of significant instability, deformity, arthritis, and pain without operative repair. The risks, benefits, and alternatives were discussed at length with the patient. All of her questions were answered. She elected to undergo surgical intervention. Absolutely, no guarantees were given or implied. PROCEDURE IN DETAIL: Under mild sedation, the patient was brought into the operating room and placed on the operating room table in the supine position. The anesthesia provider then induced general anesthesia. A left leg popliteal block was then performed by the anesthesia provider under ultrasound guidance. A well-padded pneumatic tourniquet was then placed about the patient's left thigh. The patient was then bumped and padded appropriately. The left lower extremity was then scrubbed, prepped, and draped in the usual aseptic manner. A timeout was performed confirming the correct patient, procedure, and laterality to be performed. The left lower extremity was elevated and exsanguinated using an Esmarch and the left thigh tourniquet was inflated to 275 mmHg. The left lower extremity was lowered to the operating room table. Attention was first directed to the distal fibula, where a 3 cm incision was drawn from the distal tip of the fibula extending 2 cm distal to the tip. This incision was made with a #15 blade down to the level of subcutaneous tissue. Blunt dissection was carried out to the level of the distal fibula. A [place] elevator was used to create a tunnel proximally along the fibula approximately 5 cm. The [place] guide for the nail guidewire was then inserted on the fibula. The guidewire was then placed through the fibula to the level of the fracture. Fluoroscopic guidance was used to confirm adequate position of the wire in both the AP and lateral views. The fracture was then manually reduced to improve anatomic alignment and the wire was then driven up the proximal aspect of the fibula. The [place] fibular nail was then placed in standard fashion according to the technique guide starting with the entry reamer. The reamers for the nail were then used up to the appropriate size for the nail. Fluoroscopic guidance was used throughout to confirm adequate reduction and placement. A Duffy C clamp was used to hold the reduction. The reamers were then removed and the nail was inserted into the shaft of the fibula. Fluoroscopic guidance was used to confirm that the nail was inserted fully into the canal. Reduction was maintained and the fibula was noted to length after distraction. The screws were then placed throughout the fibular nail according to standard fashion after the proximal prongs were activated. Fluoroscopic images confirmed adequate placement of the nail and position of the screws as well as reduction of the fracture. Under live fluoroscopy, an external rotation test was performed which confirmed syndesmotic instability. A small incision was then placed over the level of the syndesmotic screw holes through the nail. This was carried out to the level of the bone. The drill guide for the syndesmotic screws was then placed and a large reduction clamp was used to reduce the syndesmosis while holding the foot in a dorsiflexed and internally rotated position. The screws were then placed in standard fashion. All temporary fixation and the guide for the nail were then removed. Final fluoroscopic images were taken confirming that there was no further gapping of the medial ankle joint gutter. There was adequate reduction of the fracture. All hardware was intact and well aligned. The incisions were irrigated with copious amounts of normal saline. The incisions were then closed in layers using 2-0 Vicryl, 4-0 Monocryl, 3-0 nylon. Prior to closure of the skin layers, the tourniquet was deflated noting immediate hyperemia to all digits of the left foot. 10 mL of 0.5% Marcaine plain were then used to augment the saphenous nerve on the medial side. The incisions were then dressed with Betadine-soaked Adaptic followed by 4 x 4 gauze followed by ABD pad followed by Webril followed by application of a well-padded posterior with stirrups plaster splint. The patient tolerated the procedure and anesthesia well and left the operating room with vital signs stable with vascular status intact to all digits of the left foot. The patient will be transferred back to the floor for continued inpatient management. I will follow up with the patient outpatient for postoperative recovery. Leanne Villegas DPM TID: [id number] RECEIPT: [id number] MICHELLE/PURVI
== END 2024-10-06 16:24 | disposition home or self-care (01) | DRG 313 ==
LOC: ER 13:07 → ED HOLD 16:47 → ORTHO 4S 10-04 00:05
PROVIDERS: ADMIT Family Medicine; ATTEND Family Medicine
PROC: 0SSG04Z Reposition Left Ankle Joint with Internal Fixation Device, Open Approach (ICD-10-PCS; 2024-10-04)
PROC: 3E0T3BZ Introduction of Anesthetic Agent into Peripheral Nerves and Plexi, Percutaneous Approach (ICD-10-PCS; 2024-10-04)
PROC: 3E0T33Z Introduction of Anti-inflammatory into Peripheral Nerves and Plexi, Percutaneous Approach (ICD-10-PCS; 2024-10-04)
PROC: 0QSK06Z Reposition Left Fibula with Intramedullary Internal Fixation Device, Open Approach (ICD-10-PCS; principal; 2024-10-04 17:59)
DX: S82.832A Other fracture of upper and lower end of left fibula, initial encounter for closed fracture (principal); F10.139 Alcohol abuse with withdrawal, unspecified; I10 Essential (primary) hypertension; S93.05XA Dislocation of left ankle joint, initial encounter; S82.292A Other fracture of shaft of left tibia, initial encounter for closed fracture; W18.39XA Other fall on same level, initial encounter; Y93.89 Activity, other specified; Y92.89 Other specified places as the place of occurrence of the external cause; Y99.8 Other external cause status; Z83.3 Family history of diabetes mellitus; Z87.891 Personal history of nicotine dependence; Z90.49 Acquired absence of other specified parts of digestive tract
CPT/HCPCS: 36415; 71045; 73590; 73600; 73700; 76000; 80053; 82948; 83036; 83690; 83735; 84100; 84703; 85025; 85610; 86885; 87081; 93005; 94760; 97116; 97161; 97530; 99285; A4615; A4618; A6223; A6253; A6449; A7000; C1713; C1769; G0378; J0665; J0690; J0735; J1100; J1171; J1650; J1815; J1885; J2250; J2405; J2704; J2795; J3010; J7030; J7120